=== PATIENT | male | born 1995 | race Caucasian/White ===

== ENCOUNTER 2023-12-23 20:44 | Emergency (ER) | payer OTHER ==
[~2023-12-23] VITALS: Ht 170.2 cm; Wt 103.0 kg
[2023-12-23 22:38] VITALS: BP 141/86; PULSE 80; RESP 18; TEMP 98.9; O2SAT 98
== END 2023-12-23 23:56 | disposition home or self-care (01) ==
LOC: ER 20:44
DX: S93.492A Sprain of other ligament of left ankle, initial encounter (principal); J45.909 Unspecified asthma, uncomplicated; X58.XXXA Exposure to other specified factors, initial encounter; Y93.89 Activity, other specified; Y92.89 Other specified places as the place of occurrence of the external cause; Y99.8 Other external cause status
CPT/HCPCS: 29515; 93971